=== PATIENT | female | born 1935 | race Caucasian/White ===

== ENCOUNTER 2019-09-23 00:34 | Day surgery (SDC) | payer MEDICARE, SELFPAY ==
[2019-09-16 14:58] VITALS: BMI 23.4
[2019-09-23] MEDS: LACTATED RINGERS 1,000 ML 150 ML IV CONT (09:16)
[2019-09-23 09:17] VITALS: BP 155/85; PULSE 62; RESP 20; TEMP 36.6; O2SAT 98
--- NOTE | 2019-09-23 09:19 | WPDANESEPPF ---
Anes - Initial Pre Proc Eval Procedure: Operation Date: 09/23/19 09:30 Proposed Procedures p Flexible Sigmoidoscopy - Ken Cardozo MD Date/Time: 09/23/19 09:19 Surgeon: Ken Cardozo MD Pre Op Diagnosis: Sigmoid Colitis Patient Data Age: 84 Gender: F Height: 1.6 m Weight: 60 kg Allergies Allergy/AdvReac Type Severity Reaction Status Date / Time Dust Allergy Intermediate Uncoded 09/23/19 08:46 Molds and Smuts Allergy Intermediate Uncoded 09/23/19 08:46 Home Medications Medication Instructions Recorded Confirmed Type amiodarone 200 mg PO DAILY 09/16/19 09/16/19 History Patient hx anesthesia problems: none Family hx anesthesia problems: none [facility] Past Medical History Medical History (Updated 09/22/19 @ 13:23 by Valente Bazan DO) Atrial fibrillation Social History Social History Gender identity (if verbalized by the patient): Female Anes - Eval Final PreProcedure Day of Procedure 09/23/19 09:19 Patient weight: normal Heart: regular rate and rhythm Lungs: clear to auscultation and normal air movement Airway: Mallampati scale class II Neurological: alert and oriented Last oral intake: >/= 8 hours ASA classification: III Emergent: no Anesthetic plan: proceed Anesthesia type and monitoring: general GIVS and standard monitoring Informed Consent: The patient's anesthetic plan and its attendant risks and benefits were discussed with the patient/family/POA. Questions were solicited and answers provided to the satisfaction of the patient/family/POA.
--- NOTE | 2019-09-23 09:24 | P.HP_ITS ---
History of Present Illness History of Present Illness Consent: Risks, benefits, and alternatives have been discussed and questions answered. Patient agrees to proceed with procedure. Chief complaint: Sigmoid Colitis Narrative: Kirsty Hewitt is a 84 year old W female referred for flexible sigmoidoscopy secondary to a recent episode of constipation and rectal bleeding. Patient was in [place] at that time was seen in the emergency room did have a CT scan of the abdomen and pelvis and I do not have these results. However the Isabelle in she says sigmoid colitis. Patient has no symptoms at the present time. She states she had attempted colonoscopy over 10 years ago was incomplete secondary to redundant colon she did have what sounds like a barium enema at that time. Patient was on Eliquis for AFib. This was stopped when she had a rectal bleeding. [facility] Past Medical History Medical History (Updated 09/23/19 @ 09:26 by Ken Cardozo MD) Atrial fibrillation Hypertension Social History Social History Gender identity (if verbalized by the patient): Female Meds Home Medications and Allergies Home Medications Medication Instructions Recorded Confirmed Type amiodarone 200 mg PO DAILY 09/16/19 09/16/19 History Allergies Allergy/AdvReac Type Severity Reaction Status Date / Time Dust Allergy Intermediate Uncoded 09/23/19 08:46 Molds and Smuts Allergy Intermediate Uncoded 09/23/19 08:46 Vital Signs Vital Signs - 24 hr 09/23/19 09:17 Temperature 36.6 C Pulse Rate 62 Respiratory Rate 20 Blood Pressure 155/85 H Pulse Oximetry 98 Exam Const: Orientation/consciousness: patient oriented x3 Resp: Auscultation: clear to auscultation bilaterally Cardio: Rate: regular rate Rhythm: regular rhythm Heart sounds: no murmurs GI: GI Palp: Yes Soft to palpation, No Tenderness to palpation present (GI), Yes No hepatosplenomegaly present and No Palpable mass present Auscultation: normal bowel sounds Neuro: General: patient oriented x3 and no focal motor deficits Extrem: General: no pedal edema Assessment and Plan Additional Plan flexible sigmoidoscopy for evaluation of rectal bleeding
[2019-09-23 10:43] VITALS: BP 130/58; PULSE 48; RESP 20; O2SAT 97
[2019-09-23 10:53] VITALS: BP 144/118; PULSE 50; RESP 20; O2SAT 99
[2019-09-23 11:03] VITALS: BP 166/70; PULSE 52; RESP 20; O2SAT 99
== END 2019-09-23 11:20 | disposition home or self-care (01) ==
PROVIDERS: PCP Internal Medicine; Visit Provider Internal Medicine Gastroenterology
PROC: 0DJD8ZZ Inspection of Lower Intestinal Tract, Via Natural or Artificial Opening Endoscopic (ICD-10-PCS; CPT 45330; principal; 2019-09-23 09:30)
DX: K92.1 Melena (principal); I48.91 Unspecified atrial fibrillation; I10 Essential (primary) hypertension
CPT/HCPCS: 45330; J2704; J7120

== ENCOUNTER → 2020-01-31 14:47 | Outpatient (CLI) | payer MEDICARE, SELFPAY ==
--- NOTE | ~2020-01-31 | MR_ITS ---
EXAMINATION: MR brain/brain stem wo con DATE: 01/31/2020 15:23 INDICATION: Ataxia. Mild cognitive impairment. TECHNIQUE: Magnetic resonance imaging (MRI) of the brain and brainstem was performed without intraven ous contrast. Sequences included sagittal and axial T1-weighted FSE, axial diffusion-weighted FS EPI, axial T2*-weighted GRE, axial T2-weighted FLAIR Propeller, and axial T2-weighted Propeller. Apparent diffusion coefficient (ADC) maps were created. COMPARISON: None. FINDINGS: There are scattered areas of nonspecific increased T2-weighted signal intensity in the cere bral white matter. There is no intracranial hemorrhage, acute infarction, or abnormal intracranial ma ss lesion. The ventricles are normal in size. There are likely changes of ocular lens replacement ronnie geries. Right maxillary sinus is small and completely opacified. The mastoid air cells are normal. IMPRESSION: 1. Mild nonspecific cerebral white matter disease, which likely represents chronic small vessel ische cecy disease. Reviewed, dictated and finalized at location A. IMPRESSION: 1. 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
== END ==
PROVIDERS: PCP Internal Medicine
DX: R27.0 Ataxia, unspecified (principal); G31.84 Mild cognitive impairment of uncertain or unknown etiology; R93.0 Abnormal findings on diagnostic imaging of skull and head, not elsewhere classified
CPT/HCPCS: 70551

== ENCOUNTER 2021-02-12 10:56 | Outpatient (CLI) | payer MEDICARE, SELFPAY ==
--- NOTE | 2021-02-15 21:32 | WPDHOLTEREM ---
Holter/Event Monitor Holter/Event Monitor Date of procedure: 02/15/21 Holter/Event Procedure: 48 Hr Holter Monitor Diagnosis: AFib, bradycardia Indications: AFib, bradycardia Image/Tracing Quality: good Finding: The patient was monitored for 48 hours. The underlying rhythm was sinus with a minimum heart rate of 42 beats per minute, average heart of 62 beats per minute and maximum rate of 124 beats per minute. Only 1 PVC was seen. There was no atrial fibrillation. There were 15 runs of atrial tachycardia, most in the 3-5 beat range. The longest was for 10 beats at 114 beats per minute. There was no AV block, pauses, or ventricular tachycardia. No symptoms were recorded. . Conclusion: No definite atrial fibrillation seen 15 runs of atrial tachycardia noted, the longest being for 10 beats Mild bradycardia present No symptoms recorded
== END 2021-02-12 10:57 | disposition home or self-care (01) ==
PROVIDERS: PCP Internal Medicine; Visit Provider Nurse Practitioner Family
DX: I48.19 Other persistent atrial fibrillation (principal); I47.1 Supraventricular tachycardia; R00.1 Bradycardia, unspecified
CPT/HCPCS: 93225; 93226

== ENCOUNTER 2022-02-08 12:27 | Emergency (ER) | payer MEDICARE, SELFPAY ==
--- NOTE | ~2022-02-08 | XR_ITS ---
XR chest 1V portable DATE: 02/08/2022 14:43 INDICATION: Shortness of breath, dizziness TECHNIQUE: Portable upright AP chest on 02/08/2022 at 1435 hours COMPARISON: None FINDINGS: This is a limited rotated portable AP chest. Cardiomegaly. There is left lower lung infiltrate and/or atelectasis. Minimal atelectasis at right lung base. Sma ll pleural effusions are suspected. No pulmonary vascular congestion or pneumothorax. Diffuse osteopenia. IMPRESSION: Basilar infiltrate and/or atelectasis, primarily on the left Cardiomegaly Reviewed, dictated and finalized at location B.
--- NOTE | ~2022-02-08 | CT_ITS ---
EXAMINATION: CT brain wo con DATE: 02/08/2022 17:33 INDICATION: Dizziness. Lethargy. TECHNIQUE: Computed tomography (CT) of the head was performed without intravenous contrast. The mA wa s adjusted according to patient size. Iterative reconstruction technique was employed. The dose-lengt h product was 433.79 mGy-cm. COMPARISON: Brain MRI 01/31/2020 FINDINGS: There are scattered areas of low attenuation in the cerebral white matter. There is no intr acranial hemorrhage, acute infarction, or abnormal intracranial mass lesion. The ventricles are christen l in size. There are likely changes of ocular lens replacement surgeries. There is mucosal thickening in the paranasal sinuses. The mastoid air cells are normal. IMPRESSION: 1. Moderate nonspecific cerebral white matter disease, which likely represents chronic small vessel i schemic disease. Reviewed, dictated and finalized at location A. IMPRESSION: 1. Moderate nonspecific cerebral white matter disease, which likely represents chronic small vessel ischemic disease.
[2022-02-08 12:31] VITALS: BP 99/66; PULSE 107; RESP 16; TEMP 36.2; O2SAT 100
[2022-02-08 13:51] VITALS: BP 109/94; PULSE 114; RESP 18; O2SAT 97
--- NOTE | 2022-02-08 14:14 | ECG_ITS ---
Measurements Intervals [place] Rate: 114 P: [place]: 0 QRS: -22 QRSD: 84 T: -34 QT: 323 QTc: 446 Interpretive Statements ATRIAL FIBRILLATION WITH RAPID VENTRICULAR RESPONSE DELAYED PRECORDIAL R/S TRANSITION LEFT VENTRICULAR HYPERTROPHY BORDERLINE ST-T WAVE ABNORMALITY- ANTEROLAT/INF LEADS BASELINE ARTIFACT- I, III, AVR, AVL ABNORMAL ECG Electronically Signed On 02-08-2022 16:49:08 CDT by Miguel Denise D.O.
[2022-02-08 14:58] LABS: Basophils Absolute Auto 0.1 K/mm3 (0.0-0.1); Basophils Percent Auto 0.5 % (0.2-1.2); Eosinophils Absolute Auto 0.2 K/mm3 (0-0.3); Eosinophils Percent Auto 1.7 % (0-4.4); Hematocrit 37.1 % (37.0-47.0); Hemoglobin 11.2 g/dL (12.0-15.0); Immature Granulocyte Percent A 1.9 % (0-0.5); Lymphocytes Percent Auto 9.4 % (18.3-44.2); Mean Corpuscular HGB Conc 30.2 g/dl (32-36); Mean Corpuscular Hemoglobin 27.4 pg (26-34); Mean Corpuscular Volume 90.7 fl (80-100); Mean Platelet Volume 9.2 fl (7.4-10.4); Monocytes Absolute Auto 0.6 K/mm3 (0.1-0.6); Monocytes Percent Auto 5.7 % (2.6-8.5); Neutrophils Absolute Auto 8.6 K/mm3 (1.3-6.7); Neutrophils Percent Auto 80.8 % (45.5-73.1); Platelet Count Result 401 k/mm3 (150-375); Red Blood Count 4.09 M/mm3 (4.2-5.4); Red Cell Distribution Width 14.6 % (11.5-14.5); White Blood Count 10.6 K/mm3 (4.5-10.0)
[2022-02-08 15:09] LABS: Alanine Aminotransferase 10 U/L (6-35); Albumin Level 3.2 g/dL (3.5-5.1); Alkaline Phosphatase 116 U/L (38-126); Anion Gap 2 mmol/L (8-16); Aspartate Amino Transferase 20 U/L (14-36); Bilirubin,Total 0.6 mg/dL (0.2-1.3); Blood Urea Nitrogen 13 mg/dL (7-17); Carbon Dioxide 30 mmol/L (22-30); Chloride 103 mmol/L (98-107); Estimated CRCL calculation 37 ml/min; Estimated Glomerular Filt Rate > 60; Glucose 107 mg/dL (65-110); Potassium 3.8 mmol/L (3.4-5.0); Sodium 135 mmol/L (137-145)
[2022-02-08 15:10] LABS: INR 1.6; Prothrombin Time 18.3 Seconds (11.1-14.7)
[2022-02-08 15:11] LABS: Partial Thromboplastin Time 40.3 SECONDS (22.3-36.8)
[2022-02-08 15:21] LABS: NT Pro B Type Natriuretic Pept 4870 pg/mL (5-100); Troponin I < 0.012 ng/mL (0.000-0.034)
[2022-02-08 15:34] VITALS: BP 112/62; PULSE 102; RESP 18; O2SAT 99
--- NOTE | 2022-02-08 16:05 | ED.GENADULT ---
HPI - General Adult General Chief complaint: Dizziness Stated complaint: short of breath /dizzy Time Seen by Provider: 02/08/22 13:57 Source: patient, EMS and RN notes reviewed Mode of arrival: EMS Limitations: dementia History of Present Illness HPI narrative: This is an 86 year old female who presents for evaluation of shortness of breath. EMS reports patient has been having dizziness for 1 week. Patient reports has been having dizziness for 2 years. She reports dizziness hen she sits up some times. She does not have dizziness now. She denies sensation of moving with her dizziness. EMS reports patient was found to have decreasing oxygen saturation and she was placed on oxygen. PAtient is 100% on room air. She is not requiring oxygen. Patient denies chest pain, cough, fever, chills. Patient is poor historian. When asked why she is here, she states because my hair is sticking up. Related Data Home Medications Medication Instructions Recorded Confirmed amiodarone 200 mg tablet 200 mg PO DAILY 09/16/19 09/16/19 apixaban 2.5 mg tablet (Eliquis) 2.5 mg PO BID 03/02/20 meclizine 25 mg tablet 25 mg PO BID 03/02/20 Allergies Allergy/AdvReac Type Severity Reaction Status Date / Time Dust Allergy Intermediate unknown Uncoded 03/30/20 13:32 Molds and Smuts Allergy Intermediate unknown Uncoded 03/30/20 13:32 Review of Systems Review of Systems: ROS unobtainable: Yes other (poor historian) PMFSH Past Medical History Medical History (Updated 02/08/22 @ 18:19 by Caroline Soto MD) Atrial fibrillation Chronic kidney disease Dementia Hypertension Surgical History Surgical History (Updated 02/08/22 @ 16:13 by Caroline Soto MD) Surgical history unknown Social History Social History (Updated 02/08/22 @ 16:13 by Caroline Soto MD) Smoking status: Never smoker Gender identity (if verbalized by the patient): Female Exam Const: General: no acute distress and alert Nutritional Appearance: well nourished Other: oriented to person HENMT: Head: normal to inspection Face and sinus: normal facial exam Mouth: Yes Normal oral and palatal mucosa present Throat: posterior oropharynx normal and uvula midline Eyes: Pupils: Equal, round and reactive pupils present EOM: EOMs intact bilaterally Chest: Chest palpation & inspection: normal inspection of the chest Resp: Effort & Inspection: normal respiratory effort Auscultation: clear to auscultation bilaterally Cardio: Rate: tachycardic Rhythm: abnormal rhythm Heart sounds: no murmurs GI: GI Palp: Yes Soft to palpation, No Tenderness to palpation present (GI) and No Guarding due to palpation present (GI) Auscultation: normal bowel sounds Back/Spine/Pelvis: Back: no CVA tenderness Skin: General skin exam: normal color Rashes: no rashes Wounds: no wounds Neuro: General: moves all extremities and CN's II-XI intact bilaterally Gait exam (Neuro): Normal gait present Extrem: General: normal to inspection Psych: Mental Status: mental status grossly normal Affect: normal affect Course Reevaluation(s) Reevaluation #1: I Spoke with patient and her family. They report patient is sleeping alot. They report patient has long standing dizziness . She does not seem to be here for acute problems. I spoke with Dr. Cuellar. Patient does have atrial fibrillation . She is on metoprolol and eliquis. I discussed with Dr. Cuellar. We went over all patient's labs. They are stable. No CHF on exam. He request CT brain and if normal patient can be sent back to facility. She is well appearing. She ate in ER. She also able to walk to bathroom with reasonable gait. Her behavior changes are likely due to dementia. I Discussed discharge plan with family. He will start patient on medication for appetite and intermittent agitation. Date: 02/08/22 Time: 18:11 Vital Signs Vital signs: Vital Signs Temperature 97.1 F L 02/08/22 12:31 Pulse Rate
[2022-02-08 16:28] VITALS: PULSE 110
[2022-02-08] MEDS: METOPROLOL TARTRATE INJ 5 MG/5 ML VIAL IV PUSH (16:28)
[2022-02-08 16:40] LABS: Alveolar/Arterial O2 Gradient 13.9 mmHg; Base Excess ABG 2.2 mEq/l (+/-2.0); Carboxyhemoglobin 0.1 % THb (0-2.0); Fractional Inspired Oxygen 21 %; HCO3 ABG 24.7 mEq/l (22.0-26.0); Oxygen Content ABG 17.5 %vol (16.0-22.0); Oxyhemoglobin 97.3 % THb (90.0-100.0); PCO2 ABG 31.7 mmHg (35.0-45.0); PO2 ABG 97.9 mmHg (80.0-100.0); PO2 FiO2 Ratio Arterial Blood 4.66 %; Reduced Hemoglobin 2.6 %THb (0-5.0); Total Hemoglobin 12.7 g/dL (12.0-18.0)
[2022-02-08 16:43] LABS: Device ROOM AIR; Modified Allen's Test Pass; Site Drawn RIGHT RADIAL; pH ABG 7.509 (7.350-7.450)
[2022-02-08 16:47] LABS: SARS-CoV-2 RNA PCR Negative
[2022-02-08 16:56] VITALS: BP 103/72; PULSE 81; RESP 18; O2SAT 99
[2022-02-08 16:56] LABS: Appearance Urine Clear (Clear); Bilirubin Urine Negative (Negative); Color Urine Yellow (Yellow); Glucose Urine UA Negative (Negative); Ketones Urine Negative (Negative); Leukocyte Esterase Ur Trace LEU/UL (Negative); Nitrate Urine Negative (Negative); Protein Urine Negative (Negative); Specific Grav Ur 1.015 (1.001-1.035); pH Urine 5.5 (5.0-9.0)
[2022-02-08 17:03] LABS: Mucus Urine Rare /lpf; RBC Urine 0-2 /hpf (0-2); Squamous Epithelial Cell Urine Rare /hpf (Few)
[2022-02-08 17:06] LABS: Add Urine Microscopic? YES; Blood Urine Trace-Intact (Negative)
--- NOTE | 2022-02-08 18:19 | PC.NURSE ---
Called report to [facility] care at 1816 reported received by memory care RN
[2022-02-08] MEDS: NITROFURANTOIN MONOHYD MACROCR 100 MG CAP PO (18:41)
[2022-02-08 19:19] VITALS: BP 122/78; PULSE 75; RESP 18; O2SAT 99
== END 2022-02-08 19:21 ==
PROVIDERS: Emergency Provider General Practice; PCP Family Medicine
DX: I48.20 Chronic atrial fibrillation, unspecified (principal); F03.90 Unspecified dementia, unspecified severity, without behavioral disturbance, psychotic disturbance, mood disturbance, and anxiety; N39.0 Urinary tract infection, site not specified; Z20.822 Contact with and (suspected) exposure to COVID-19; N18.9 Chronic kidney disease, unspecified; I12.9 Hypertensive chronic kidney disease with stage 1 through stage 4 chronic kidney disease, or unspecified chronic kidney disease; Z79.01 Long term (current) use of anticoagulants
CPT/HCPCS: 36415; 36600; 70450; 71045; 80053; 81001; 82375; 82805; 83050; 83880; 84484; 85025; 85610; 85730; 87086; 93005; 96374; 99284; A9270; C9803; U0003; U0005

== ENCOUNTER 2022-04-29 11:34 | Emergency (ER) | payer MEDICARE, SELFPAY ==
--- NOTE | ~2022-04-29 | CT_ITS ---
EXAMINATION: CT brain wo con DATE: 04/29/2022 12:49 INDICATION: Altered mental status. TECHNIQUE: Computed tomography (CT) of the head was performed without intravenous contrast. The mA wa s adjusted according to patient size. Iterative reconstruction technique was employed. The dose-lengt h product was 1210.67 mGy-cm. COMPARISON: Head CT 02/08/2022, brain MRI 01/31/2020 FINDINGS: There are scattered areas of low attenuation in the cerebral white matter. There is no intr acranial hemorrhage, acute infarction, or abnormal intracranial mass lesion. The ventricles are christen l in size. There are likely changes of ocular lens replacement surgeries. There is near complete opac ification of the visualized portion of right maxillary sinus. There is mild mucosal thickening in the ethmoid sinuses. The mastoid air cells are normal. IMPRESSION: 1. Stable moderate nonspecific cerebral white matter disease, which likely represents chronic small v essel ischemic disease. Reviewed, dictated and finalized at location A. IMPRESSION: 1. Stable moderate nonspecific cerebral white matter disease, which likely repr esents chronic small vessel ischemic disease.
--- NOTE | ~2022-04-29 | XR_ITS ---
EXAMINATION: XR chest 1V portable INDICATION: Altered mental status TECHNIQUE: Portable AP chest at 1258 hours COMPARISON: 02/08/2022 FINDINGS: The lungs are free of acute opacities. No pleural effusion or pneumothorax. The cardiomedia stinal silhouette is normal. IMPRESSION: 1. No acute cardiopulmonary abnormality. Reviewed, dictated and finalized at location A.
[2022-04-29 11:42] VITALS: BP 106/75; PULSE 96; RESP 17; TEMP 36.8; O2SAT 98
--- NOTE | 2022-04-29 12:02 | ED.NEUROSD ---
HPI - Neuro Symptoms/Deficit General Chief Complaint: Neuro Symptoms/Deficit Stated Complaint: L sided facial puffy ness Time Seen by Provider: 04/29/22 12:01 History of Present Illness HPI Narrative: Patient is an 86-year-old female with a history of A. fib on Eliquis, dementia, hypertension presenting with facial swelling. Patient is coming from a nursing facility. According to EMS, she fell several days ago, there was concern for facial swelling today. Facility was reportedly worried for mild facial drooping but this was not noted by EMS. According to the facility, she is otherwise at baseline health. On my evaluation, the patient denies any complaints. When asked about the facial bruising, she states that she sometimes runs into trees . She denies headache, vision changes, chest pain, shortness of breath, cough, abdominal pain, nausea or vomiting, diarrhea, dysuria. Related Data Home Medications Medication Instructions Recorded Confirmed amiodarone 200 mg tablet 200 mg PO DAILY 09/16/19 09/16/19 apixaban 2.5 mg tablet (Eliquis) 2.5 mg PO BID 03/02/20 meclizine 25 mg tablet 25 mg PO BID 03/02/20 Allergies Allergy/AdvReac Type Severity Reaction Status Date / Time Dust Allergy Intermediate unknown Uncoded 03/30/20 13:32 Molds and Smuts Allergy Intermediate unknown Uncoded 03/30/20 13:32 Review of Systems Review of Systems: All systems reviewed & are unremarkable except as noted in HPI and below PMFSH Past Medical History Medical History Atrial fibrillation Chronic kidney disease Dementia Hypertension Surgical History Surgical History Surgical history unknown Social History Social History Smoking status: Never smoker Gender identity (if verbalized by the patient): Female Exam Narrative: GENERAL: Well-appearing, well-nourished, and in no acute distress. HEAD: Normocephalic, ecchymoses in various stages of healing around left eye EYES: PERRLA and EOMI. ENT: Nares clear, no rhinorrhea or epistaxis. Mucous membranes dry. NECK: Supple. CHEST: Clear to auscultation. No respiratory distress. HEART: Regular rate and rhythm. No murmur heard. Normal peripheral pulses. ABDOMEN: Soft, nontender, nondistended, normal active bowel sounds. EXTREMITIES: Normal range of motion. No edema. SKIN: Warm, dry, no rash. NEURO: No focal deficits. A&O x1 PSYCH: Normal mood and affect. Course Course Emergency Course: Patient is an 86-year-old female with history as above presenting with facial bruising and swelling. Patient very mildly tachycardic on arrival, otherwise vitals are within normal limits. Exam remarkable for left-sided facial ecchymosis. She also appears slightly dry. Will give fluids, check labs, obtain CT head. EKG per my interpretation shows atrial fibrillation with rapid ventricular response with a ventricular rate of 117, no ST elevations or depressions. Patient does have a history of A. fib. She is on Eliquis and metoprolol. Appears she has been in A. fib the last several times she has been seen at this facility. Chest x-ray with no acute abnormalities. CMP and CBC without significant abnormalities. CT head shows no acute abnormalities. Spoke with the patient's PCP who will arrange for follow-up tomorrow. Discussed the reassuring work-up with the patient's daughter. Sounds like she is supposed to be using a walker place when she walks, unclear if she is compliant with this. Appropriate return precautions given. Patient discharged in stable condition. Vital Signs Vital signs: Vital Signs Temperature 98.2 F 04/29/22 11:42 Pulse Rate 96 04/29/22 11:42 Respiratory Rate 17 04/29/22 11:42 Blood Pressure 106/75 04/29/22 11:42 Pulse Oximetry 98 04/29/22 11:42 Temperature 98.2 F 04/29/22 11:42 Pulse R
--- NOTE | 2022-04-29 12:26 | ECG_ITS ---
Measurements Intervals [place] Rate: 117 P: [place]: 0 QRS: -20 QRSD: 80 T: -24 QT: 285 QTc: 398 Interpretive Statements ATRIAL FIBRILLATION WITH RAPID VENTRICULAR RESPONSE LOW QRS VOLTAGE IN PRECORDIAL LEADS [QRS DEFLECTION < 1.0 mV IN CHEST LEADS] MINIMAL VOLTAGE CRITERIA FOR LVH, CONSIDER NORMAL VARIANT [MEETS CRITERIA IN ONE OF: R(aVL), S(V1), R(V5), R(V5/V6)+S(V1)] POOR R-WAVE PROGRESSION ABNORMAL RHYTHM ECG COMPARED TO ECG 02/08/2022 14:27:35 NO SIGNIFICANT CHANGES Electronically Signed On 04-30-2022 13:06:20 CDT by Caitlin Morales M.D.
[2022-04-29 12:47] LABS: Basophils Percent Auto 0.5 % (0.2-1.2); Eosinophils Absolute Auto 0.1 K/mm3 (0-0.3); Hematocrit 34.4 % (37.0-47.0); Hemoglobin 10.5 g/dL (12.0-15.0); Immature Granulocyte Absolute 0.03 K/mm3 (0.00-0.031); Immature Granulocyte Percent A 0.5 % (0-0.5); Lymphocytes Absolute Auto 0.91 K/mm3 (0.9-3.2); Lymphocytes Percent Auto 14.7 % (18.3-44.2); Mean Corpuscular HGB Conc 30.5 g/dl (32-36); Mean Corpuscular Volume 91.7 fl (80-100); Mean Platelet Volume 9.5 fl (7.4-10.4); Monocytes Absolute Auto 0.5 K/mm3 (0.1-0.6); Monocytes Percent Auto 7.6 % (2.6-8.5); Neutrophils Absolute Auto 4.7 K/mm3 (1.3-6.7); Neutrophils Percent Auto 75.7 % (45.5-73.1); Platelet Count Result 301 k/mm3 (150-375); Red Blood Count 3.75 M/mm3 (4.2-5.4); Red Cell Distribution Width 15.9 % (11.5-14.5); White Blood Count 6.2 K/mm3 (4.5-10.0)
[2022-04-29] MEDS: SODIUM CHLORIDE 0.9% IV 1,000 ML 999 ML IV CONT (12:54)
[2022-04-29 12:59] LABS: Alanine Aminotransferase 9 U/L (6-35); Albumin Level 3.3 g/dL (3.5-5.1); Alkaline Phosphatase 78 U/L (38-126); Anion Gap 5 mmol/L (8-16); Aspartate Amino Transferase 19 U/L (14-36); Bilirubin,Total 0.9 mg/dL (0.2-1.3); Blood Urea Nitrogen 16 mg/dL (7-17); Calcium 8.5 mg/dL (8.4-10.2); Carbon Dioxide 29 mmol/L (22-30); Chloride 101 mmol/L (98-107); Estimated CRCL calculation 32 ml/min; Estimated Glomerular Filt Rate 59; Glucose 99 mg/dL (65-110); Potassium 3.5 mmol/L (3.4-5.0); Sodium 135 mmol/L (137-145)
[2022-04-29 13:27] VITALS: PULSE 111; RESP 23
[2022-04-29 13:30] VITALS: BP 140/74; PULSE 112; RESP 18; O2SAT 97
[2022-04-29 13:33] LABS: Add Urine Microscopic? YES; Appearance Urine Clear (Clear); Bilirubin Urine Negative (Negative); Blood Urine Negative (Negative); Color Urine Yellow (Yellow); Glucose Urine UA Negative (Negative); Ketones Urine Negative (Negative); Leukocyte Esterase Ur Negative LEU/UL (Negative); Mucus Urine Rare /lpf; Nitrate Urine Negative (Negative); Protein Urine Negative (Negative); Specific Grav Ur 1.009 (1.001-1.035)
--- NOTE | 2022-04-29 13:40 | PC.NURSE ---
pt pulled out iv in front of daughter at bedside. bleeding controlled
[2022-04-29 15:22] VITALS: BP 122/64; PULSE 96; RESP 16; O2SAT 98
== END 2022-04-29 16:06 ==
PROVIDERS: Emergency Provider Emergency Medicine
DX: S00.83XA Contusion of other part of head, initial encounter (principal); F03.90 Unspecified dementia, unspecified severity, without behavioral disturbance, psychotic disturbance, mood disturbance, and anxiety; I48.91 Unspecified atrial fibrillation; I12.9 Hypertensive chronic kidney disease with stage 1 through stage 4 chronic kidney disease, or unspecified chronic kidney disease; N18.9 Chronic kidney disease, unspecified; Z79.01 Long term (current) use of anticoagulants; X58.XXXA Exposure to other specified factors, initial encounter
CPT/HCPCS: 36415; 70450; 71045; 80053; 81001; 85025; 93005; 99284; J7030